=== PATIENT | male | born 1960 | race Caucasian/White ===

== ENCOUNTER 2021-06-24 08:59 | Emergency (ER) | payer BC, SELFPAY ==
[2021-06-24 09:21] VITALS: BP 147/88; PULSE 68; RESP 19; TEMP 37.1; O2SAT 98; BMI 41.3
[2021-06-24 09:28] VITALS: BP 147/88; PULSE 68; RESP 19; TEMP 37.1
--- NOTE | 2021-06-24 09:37 | HMH.EDUTC ---
[facility] – [place], [place] Disposition Clinical Impression: Viral syndrome Disposition: Home, Self-Care Condition on Discharge: Good Instructions: DI for Viral Syndrome, Preventing the Spread of Coronavirus Discharge Instructions Additional Instructions: Drink plenty of fluids. Take tylenol or ibuprofen for pain or fever. Follow up with your regular doctor. GO TO THE ER FOR ANY WORSENING SYMPTOMS Quarantine until you know the results of your covid-19 test. If it is positive, the health department should call you and give you further instructions about your length of Quarantine and other things. Notify your school or workplace of your results and follow their instructions regarding return to work/school. Prescriptions: Ondansetron [Zofran 4mg ODT] 4 mg PO DAILYP PRN #12 tab PRN Reason: Nausea Transmission Status: Received by [id number] Referrals: Augusto Wilde III, MD [Primary Care Provider] - Time of Disposition: 09:42 Medical Decision Making - Medical Records Medical records reviewed: No: I reviewed the patient's medical records. - [place] Inquiry Pt receiving controlled substance: No Vital Signs: 06/24/21 09:21 06/24/21 09:28 Temperature 98.8 F 98.8 F Temperature Source Oral Pulse Rate 68 Pulse Rate [Left] 68 Respiratory Rate 19 19 Blood Pressure 147/88 H Blood Pressure [Right Arm] 147/88 H Blood Pressure Mean [Right Arm] 107 02 Sat by Pulse Oximetry 98 Orders (Tests/Meds): ORDERS Category Date Time Status Covid-19 Nasal PCR ([facility]) Routine Lab 06/24/21 09:16 Received [facility] – [place], [place] HPI - General Stated complaint: covid test / Cough Time Seen by Provider: 06/24/21 09:37 Mode of Arrival: Ambulatory Source of Information: Patient Limitations: No Limitations Description of Symptoms (Recalled from Triage Doc. by RN): pt c/o of cough and low grade fever. pt wants a covid test. HEENT Symptoms (Recalled from RN notes): No Resp Symptoms (Recalled from RN notes): Yes (cough) Skin Symptoms (Recalled from RN notes): No MS Symptoms (Recalled from RN notes): No Functional Status (Recalled from RN notes): na - History of Present Illness Provider Complaint: He got up this morning and he felt kind of bad so he checked his temperature. It read 99.0. He didn't think any thing else about it, but when he is went to work she was not allowed to enter her work due to answering yes about someone in her house having a fever. So, his cannot return to work until he has a covid test and that test is negative. He does say he had a slight cough this morning also, but he denies any other symptoms. He has not been vaccinated against covid-19. - Related Data Previous Rx's Medication Instructions Recorded Ondansetron [Zofran 4mg ODT] 4 mg PO DAILYP PRN #12 tab 06/24/21 Allergies Allergy/AdvReac Type Severity Reaction Status Date / Time codeine Allergy Verified 06/24/21 09:42 - Worker's Comp Is this a Worker's Comp case?: No [facility] History - Hepatitis A Screen Drug use history?: No High risk sexual behaviors?: No History of sexually transmitted infection?: No Currently employed?: No Childcare worker?: No Do you have indoor plumbing?: Yes Do you have electricity?: Yes Attestation statement:: This patient has been screened for Hepatitis A risk factors. I have reviewed the patient's past medical history: Yes ROS Obtained: Yes All systems reviewed & no additional complaints - Constitutional Constitutional: Reports as per HPI - Eyes Eyes: Denies eye discharge - ENT Ears, Nose, Mouth, and Throat: Denies dizziness, Denies otalgia, Denies sore throat - Cardiovascular Cardiovascular: Denies chest pain - Respiratory Respiratory: Denies chest congestion, Reports cough, Denies dyspnea, Denies stridor, Denies wheezing - Gastrointestinal Gastrointestingal: Denies: abdominal pain, diarrhea, nausea, vomiting - Musculoskeletal Musculoskeletal: Denies joint pain - In
--- NOTE | 2021-06-24 17:46 | PC.NURSE ---
PT NOTIFIED OF POSITIVE COVID TEST RESULT
== END 2021-06-24 09:54 | disposition home or self-care (01) ==
PROVIDERS: Emergency Provider Nurse Practitioner Family; PCP Obstetrics & Gynecology
DX: U07.1 COVID-19 (principal)
CPT/HCPCS: 99202; G0463; U0003